=== PATIENT | male | born 1965 | race Asian ===

== ENCOUNTER 2017-09-04 07:11 | Emergency (ER) | payer OTHER ==
[~2017-09-04] VITALS: Ht 170.2 cm; Wt 64.9 kg
[2017-09-04 08:25] LABS: PLATELET COUNT 221 K/uL (142-355)
== END 2017-09-04 09:17 | disposition home or self-care (01) ==
LOC: ED 07:11
DX: B20 Human immunodeficiency virus [HIV] disease (principal); J18.9 Pneumonia, unspecified organism
CPT/HCPCS: 36415; 85027; 87081; 87804; 87880; 99283

== ENCOUNTER 2017-11-19 22:40 | Emergency (ER) | payer OTHER ==
[~2017-11-19] VITALS: Ht 170.2 cm; Wt 63.5 kg
[2017-11-19 23:18] LABS: PLATELET COUNT 283 K/uL (142-355)
== END 2017-11-19 23:47 | disposition home or self-care (01) ==
LOC: ED 22:40
DX: J02.9 Acute pharyngitis, unspecified (principal); B20 Human immunodeficiency virus [HIV] disease
CPT/HCPCS: 36415; 85027; 87081; 87880; 99283

== ENCOUNTER 2018-02-22 08:48 | Emergency (ER) | payer OTHER ==
[~2018-02-22] VITALS: Ht 170.2 cm; Wt 63.5 kg
[2018-02-22 09:25] LABS: PLATELET COUNT 230 K/uL (142-355)
[2018-02-22 09:28] LABS: POTASSIUM 3.6 mmol/L (3.6-5.2)
[2018-02-22 12:00] VITALS: BP 137/87; TEMP 99
== END 2018-02-22 12:18 | disposition short-term general hospital (02) ==
LOC: ED 08:48
DX: C34.91 Malignant neoplasm of unspecified part of right bronchus or lung (principal); B20 Human immunodeficiency virus [HIV] disease
CPT/HCPCS: 36415; 80053; 80307; 81000; 85027; 96365; 99284; J0696; Q9963

== ENCOUNTER 2018-02-22 12:10 | Outpatient (CLI) | payer OTHER | END 2018-02-22 12:51 | disposition short-term general hospital (02) | LOC: AMB 12:10 | DX: J16.8 Pneumonia due to other specified infectious organisms (principal) | CPT/HCPCS: A0425; A0427 ==

== ENCOUNTER 2018-04-27 06:33 | Outpatient (CLI) | payer OTHER ==
[2018-04-27] MEDS ORDERED: TRUVADA PO (06:58)
[2018-04-27] MEDS ORDERED: TIVICAY50 MG PO (06:58)
[2018-04-27] MEDS ORDERED: PREZCOBIX 800-11 TAB PO (06:58)
[2018-04-27] MEDS ORDERED: ZOFRAN ODT8 MG PO (06:59)
[2018-04-27] MEDS ORDERED: [UNRECOGNIZED DRUG - OTHER] EX (06:59)
== END 2018-04-27 06:46 | disposition short-term general hospital (02) ==
LOC: AMB 06:33
DX: G89.29 Other chronic pain (principal)
CPT/HCPCS: A0425; A0426

== ENCOUNTER 2018-04-27 06:53 | Emergency (ER) | payer OTHER ==
[~2018-04-27] VITALS: Ht 170.2 cm; Wt 56.7 kg
[2018-04-27] MEDS ORDERED: TIVICAY50 MG PO (06:58)
[2018-04-27] MEDS ORDERED: TRUVADA PO (06:58)
[2018-04-27] MEDS ORDERED: PREZCOBIX 800-11 TAB PO (06:58)
[2018-04-27] MEDS ORDERED: ZOFRAN ODT8 MG PO (06:59)
[2018-04-27] MEDS ORDERED: [UNRECOGNIZED DRUG - OTHER] EX (06:59)
[2018-04-27 07:41] VITALS: BP 97/59; TEMP 98.1
== END 2018-04-27 07:45 | disposition home or self-care (01) ==
LOC: ED 06:53
DX: T82.898A Other specified complication of vascular prosthetic devices, implants and grafts, initial encounter (principal); M54.2 Cervicalgia
CPT/HCPCS: 99282

== ENCOUNTER 2018-08-27 10:40 | Outpatient (CLI) | payer OTHER ==
[~2018-08-27 10:40] MED LIST: PREZCOBIX 800-11 TAB PO; TIVICAY50 MG PO; TRUVADA PO; ZOFRAN ODT8 MG PO; [UNRECOGNIZED DRUG - OTHER] EX
[2018-08-27] MEDS ORDERED: ATOVAQUONE750 MG/5 M PO (15:57)
== END 2018-08-27 10:44 | disposition short-term general hospital (02) ==
LOC: AMB 10:40
DX: R55 Syncope and collapse (principal)
CPT/HCPCS: A0425; A0427

== ENCOUNTER 2018-08-27 10:47 | Observation (INO) | payer OTHER ==
[~2018-08-27] VITALS: Ht 170.2 cm; Wt 52.4 kg
[2018-08-27] VITALS (8 sets, daily range): BP systolic 87–102; BP diastolic 46–62; TEMP 97.8–98.7; Ht 170.2 cm; Wt 52.4 kg
[2018-08-27 11:13] LABS: PLATELET COUNT 259 K/uL (142-355)
[2018-08-27 11:20] LABS: POTASSIUM 3.9 mmol/L (3.6-5.2)
[2018-08-27] MEDS ORDERED: ATOVAQUONE750 MG/5 M PO (15:57)
[2018-08-28] VITALS: BP 90/62; TEMP 98.2
[2018-08-28 05:23] VITALS: BP 87/57; TEMP 97.9
[2018-08-28 06:23] LABS: POTASSIUM 4.1 mmol/L (3.6-5.2)
[2018-08-28 07:09] LABS: PLATELET COUNT 187 K/uL (142-355)
[2018-08-28 08:12] VITALS: BP 92/54; TEMP 98.2
[2018-08-28 12:03] VITALS: BP 98/56; TEMP 98.3
[2018-08-28 16:04] VITALS: BP 105/68; TEMP 98.6
[2018-08-28 23:59] VITALS: BP 103/69; TEMP 98.8
[2018-08-29 04:03] VITALS: BP 110/71; TEMP 98.8
[2018-08-29 05:48] LABS: PLATELET COUNT 225 K/uL (142-355)
[2018-08-29 06:13] LABS: POTASSIUM 4.7 mmol/L (3.6-5.2)
[2018-08-29 12:05] VITALS: BP 113/76; TEMP 98.3
== END 2018-08-29 14:05 | disposition home or self-care (01) ==
LOC: ED 10:47 → MED/SURG 11:55
PROVIDERS: ADMIT Emergency Medicine
PROC: 30233N1 Transfusion of Nonautologous Red Blood Cells into Peripheral Vein, Percutaneous Approach (ICD-10-PCS; principal; 2018-08-28)
DX: D64.89 Other specified anemias (principal); B20 Human immunodeficiency virus [HIV] disease; I95.89 Other hypotension; R05 Cough; E83.51 Hypocalcemia; E87.1 Hypo-osmolality and hyponatremia; R63.6 Underweight
CPT/HCPCS: 36415; 36430; 80053; 85027; 86850; 86870; 86900; 86901; 86905; 86922; 93005; 96360; 99220; 99284; G0378; J1650; J1885; P9016

== ENCOUNTER 2018-09-05 01:01 | Emergency (ER) | payer OTHER ==
[~2018-09-05] VITALS: Ht 170.2 cm; Wt 52.2 kg
[~2018-09-05 01:01] MED LIST changes: +ATOVAQUONE750 MG/5 M PO
[2018-09-05 01:21] LABS: PLATELET COUNT 438 K/uL (142-355)
[2018-09-05 01:29] LABS: POTASSIUM 4.1 mmol/L (3.6-5.2)
[2018-09-05 02:57] VITALS: BP 107/70; TEMP 98.1
== END 2018-09-05 03:02 | disposition home or self-care (01) ==
LOC: ED 01:01
PROVIDERS: Internal Medicine
DX: K92.2 Gastrointestinal hemorrhage, unspecified (principal); I95.89 Other hypotension; B20 Human immunodeficiency virus [HIV] disease; R05 Cough; R00.0 Tachycardia, unspecified
CPT/HCPCS: 36415; 74022; 80053; 85027; 96365; 96374; 99285; J3490

== ENCOUNTER 2019-02-18 00:37 | Emergency (ER) | payer OTHER ==
[~2019-02-18] VITALS: Ht 170.2 cm; Wt 61.2 kg
[2019-02-18 02:05] VITALS: BP 118/78; TEMP 98.2
== END 2019-02-18 02:07 | disposition home or self-care (01) ==
LOC: ED 00:37
DX: M25.551 Pain in right hip (principal)
CPT/HCPCS: 96372; 99283; J1885

== ENCOUNTER 2019-03-16 09:48 | Outpatient (CLI) | payer OTHER | END 2019-03-16 22:46 | disposition home or self-care (01) | LOC: MRI 09:48 | DX: M54.41 Lumbago with sciatica, right side (principal) ==

== ENCOUNTER 2019-03-27 12:35 | Outpatient (CLI) | payer OTHER | END 2019-03-27 12:40 | disposition short-term general hospital (02) | LOC: AMB 12:35 | DX: M54.5 Low back pain (principal) | CPT/HCPCS: A0425; A0429 ==

== ENCOUNTER 2019-03-27 12:47 | Emergency (ER) | payer OTHER ==
[~2019-03-27] VITALS: Ht 170.2 cm; Wt 59.0 kg
[2019-03-27 13:53] LABS: PLATELET COUNT 242 K/uL (142-355)
[2019-03-27 13:57] LABS: POTASSIUM 3.4 mmol/L (3.6-5.2); SODIUM 134 mmol/L (136-145)
[2019-03-27 17:18] VITALS: TEMP 98.6
[2019-03-27 17:39] VITALS: BP 101/66
== END 2019-03-27 18:46 | disposition short-term general hospital (02) ==
LOC: ED 12:47
PROVIDERS: Emergency Medicine
DX: C34.91 Malignant neoplasm of unspecified part of right bronchus or lung (principal); J18.9 Pneumonia, unspecified organism; B20 Human immunodeficiency virus [HIV] disease; R06.02 Shortness of breath; R00.0 Tachycardia, unspecified
CPT/HCPCS: 36600; 80053; 82805; 83605; 83735; 83880; 84484; 85007; 85027; 87040; 93005; 94664; 96360; 96361; 96365; 96366; 96375; 96376; 99285; J0696; J2270; J2543; J3370; Q9963